=== PATIENT | female | born 1970 | race Hispanic/Latino ===

== ENCOUNTER 2018-03-25 07:49 | Emergency (ER) | payer OTHER, SELFPAY ==
[2018-03-25] MEDS ORDERED: NA CHLORIDE 0.9% 500 ML ONE (08:14)
[2018-03-25 08:28] LABS: Absolute Lymphocytes (CBC) 2.8 K/uL (0.7-4.9); Absolute Monocytes 0.6 K/uL (0.1-1.3); Absolute Neutrophil 3.7 K/uL (1.8-8.0); Basophils % 0.5 % (0-1.3); Eosinophils % 1.5 % (0-4.4); Hematocrit 45.5 % (36.0-45.0); Lymphocytes % 38.6 % (15.3-44.8); MCV 91.4 fL (80-100); MPV 8.7 fL (7.6-11.3); Monocytes % 8.8 % (3.3-12.3); RBC Red Blood Cell Count 4.98 M/uL (3.86-4.86)
--- NOTE | 2018-03-25 08:48 | RAD REPORT ---
EXAM DESCRIPTION: CT - Head Brain Wo Cont - 03/25/2018 8:41 am CLINICAL HISTORY: Dizziness;Headache COMPARISON: No comparisons TECHNIQUE: All CT scans are performed using dose optimization technique as appropriate and may inclu de automated exposure control or mA/KV adjustment according to patient size. FINDINGS: No intracranial hemorrhage, hydrocephalus or extra-axial fluid collection.No areas of brai n edema or evidence of midline shift. The paranasal sinuses and mastoids are clear. The calvarium is intact. IMPRESSION: No acute intracranial abnormality.
[2018-03-25 09:07] LABS: BUN Blood Urea Nitrogen 10 mg/dL (7-18); Bicarbonate 30 mmol/L (21-32); CKMB Creatine Kinase MB < 1.0 ng/mL (0.3-3.6); Creatine Phosphokinase 106 U/L (26-192); Glucose Level 97 mg/dL (74-106); Potassium 3.9 mmol/L (3.5-5.1); Sodium Level 137 mmol/L (136-145)
--- NOTE | 2018-03-25 09:20 | RAD REPORT ---
EXAM DESCRIPTION: RAD - Chest Single View - 03/25/2018 8:33 am CLINICAL HISTORY: CHEST PAIN Chest pain. COMPARISON: No comparisons FINDINGS: Portable technique limits examination quality. The lungs are grossly clear. The heart is normal in size. No displaced fractures. IMPRESSION: No acute intrathoracic process suspected.
--- NOTE | 2018-03-25 09:22 | EKG ---
Test Date: 2018-03-25 Test Time: 07:59:51 Care Attendant: ROLANDO MEASUREMENT RESULTS: Intervals: Rate: 60 IA: 130 QRSD: 86 QT: 424 QTc: 424 [place]cl[place]: P: 43 IA: 130 QRS: 102 T: 72 INTERPRETIVE STATEMENTS: Normal sinus rhythm Possible Right ventricular hypertrophy Abnormal ECG No previous ECG available for comparison Electronically Signed On 03-25-18 09:22:37 CDT by Rudi Davies
--- NOTE | 2018-03-25 09:37 | ER ---
Nurse's Notes [facility] Name: Nilda Eldridge Age: 47 yrs Sex: Female : 1970 Arrival Date: 03/25/2018 Time: 07:53 Bed 13 Private MD: None, None Diagnosis: Hypertension;Headache;Palpitations Presentation: 03/25 07:59 Presenting complaint: Patient states: This morning around 0340 I woke up with really sg bad chest pressure, the pain and pressure kept getting worse so I wanted to come in to get seen. pt stated her BP at home was 176/ i cant remember the bottom number but it was high. At 0500 this morning I started having a really dry mouth, and just cant get enough water. I take my BP meds but the pressure still hasnt come down. Transition of care: patient was not received from another setting of care. Onset of symptoms was March 25, 2018. Risk Assessment: Do you want to hurt yourself or someone else? Patient reports no desire to harm self or others. Initial Sepsis Screen: Does the patient meet any 2 criteria? No. Patient's initial sepsis screen is negative. Does the patient have a suspected source of infection? No. Patient's initial sepsis screen is negative. Care prior to arrival: None. 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 - Social history:: Smoking status: Patient/guardian denies using tobacco. - Ebola Screening: : Patient negative for fever greater than or equal to 101.5 degrees Fahrenheit, and additional compatible Ebola Virus Disease symptoms Patient denies exposure to infectious person Patient denies travel to an Ebola-affected area in the 21 days before illness onset No symptoms or risks identified at this time. - Family history:: not pertinent. - Hospitalizations: : No recent hospitalization is reported. Screenin:10 Abuse screen: Denies threats or abuse. Denies injuries from another. Nutritional sg screening: No deficits noted. Tuberculosis screening: No symptoms or risk factors identified. Never had TB. Fall Risk None identified. Assessment: 08:10 General: Appears in no apparent distress. comfortable, well groomed, well developed, sg well nourished, Behavior is calm, cooperative, appropriate for age. Pain: Complains of pain in mid-sternal area Quality of pain is described as pressure, Is intermittent, lasting more than 1 hour. Neuro: Level of Consciousness is awake, alert, obeys commands, Oriented to person, place, time, situation, Muleser are equal bilaterally Moves all extremities. Full function Gait is steady, Speech is normal, Facial symmetry appears normal. Cardiovascular: Heart tones S1 S2 present Capillary refill is brisk in bilateral fingers Patient's skin is warm and dry. Chest pain is described as mild, quality is pressure, is located in substernal area episodes are intermittent. Respiratory: Airway is patent Respiratory effort is even, unlabored, Respiratory pattern is regular, symmetrical, Breath sounds are clear Denies cough, shortness of breath labored breathing, pain with respiration, pain with cough, pain with movement, air hunger. GI: No signs and/or symptoms were reported involving the gastrointestinal system. : No signs and/or symptoms were reported regarding the genitourinary system. EENT: No signs and/or symptoms were reported regarding the EENT system. Derm: Skin is pink, warm \T\ dry. Musculoskeletal: No signs and/or symptoms reported regarding the musculoskeletal system. 08:20 Reassessment: xray at bedside. sg Vital Signs: 08:23 BP 166 / 100; Pulse 58; Resp 20; Temp 98.2; Pulse Ox 98% on R/A; Weight 75.75 kg; mh5 Height 5 ft. 1 in. (154.94 cm); Pain 5/10; 08:59 BP 137 / 86; Pulse 62; Resp 14; Pulse Ox 98% ; mh5 08:23 Body Mass Index 31.55 (75.75 kg, 154.94 cm) 5 ED Course: 07:53 Patient arrived in ED. sb2 07:54 None, None is Private Physician. sb2 07:59 Myron Helm RN is Primary Nurse. sg 08:02 Triage completed. sg 08:02 Arm band placed on. sg 08:03 Fei Hussein MD is Attending Physician. rn 08:10 No provider procedures requiring assistance completed. sg 08:11 Primary Nurse role handed off by Myron Helm RN 08:17 Myron Helm, RN is Primary Nurse. sg 08:22 Initial lab(s) drawn, by pa, sent to lab. Inserted saline lock: 22 gauge in left mh5 antecubital area, using aseptic technique. Blood collected. 08:23 Patient has correct armband on for positive identification. Placed in gown. Bed in low mh5 position. Call light in reach. Side rails up X 1. Warm blanket given. residential monitor on. Pulse ox on. NIBP on. 08:27 CPK Sent. 5 08:27 Ckmb Sent. 5 08:27 Basic Metabolic Panel Sent. 5 08:27 CBC with Diff Sent. 5 08:27 Troponin (emerg Dept Use Only) Sent. 5 08:33 XRAY Chest (1 view) In Process Unspecified. EDMS 08:41 CT Head Brain wo Cont In Process Unspecified. EDMS 09:23 Myron Helm, RN is Primary Nurse. sg 10:00 IV discontinued, intact, bleeding controlled, No redness/swelling at site. Pressure sg dressing applied. Administered Medications: 08:17 Drug: NS 0.9% 500 ml Route: IV; Rate: bolus; Site: left antecubital; sg 09:00 Follow up: Response: No adverse reaction; IV Status: Completed infusion; IV Intake: sg 500ml Intake: 09:00 IV: 500ml; Total: 500ml. sg Outcome: 09:36 Discharge ordered by . rn 10:00 Discharged to home ambulatory. sg 10:00 Condition: good 10:00 Discharge instructions given to patient, Instructed on discharge instructions, follow up and referral plans. safety practices, Demonstrated understanding of instructions, follow-up care. 10:08 Patient left the ED. sg Signatures: Dispatcher [employer] EDMS Myron Helm, Fei Colunga RN, MD MD rn Gallardo, Filomena Ceja [facility] Nery Fuentes2
--- NOTE | 2018-03-25 09:37 | EDPHYS ---
Physician Documentation [facility] Name: Nilda Eldridge Age: 47 yrs Sex: Female : 1970 Arrival Date: 03/25/2018 Time: 07:53 Bed 13 Private MD: None, None ED Physician Fei Hussein HPI: 03/25 08:11 This 47 yrs old Female presents to ER via Ambulatory with complaints of High rn Blood Pressure. 08:11 The patient has elevated blood pressure and discovered this at home. Onset: The rn symptoms/episode began/occurred last night. Modifying factors:. Associated signs and symptoms: Pertinent positives: chest pain, dizziness, headache, weakness. Severity of symptoms: At its worst the blood pressure was moderate, in the emergency department the blood pressure is improved. The patient has experienced similar episodes in the past. Reports noticed high blood pressure last night, assoc with headache, dizziness, generalized weakness, dry mouth, takes her medication. 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 - Social history:: Smoking status: Patient/guardian denies using tobacco. - Ebola Screening: : Patient negative for fever greater than or equal to 101.5 degrees Fahrenheit, and additional compatible Ebola Virus Disease symptoms Patient denies exposure to infectious person Patient denies travel to an Ebola-affected area in the 21 days before illness onset No symptoms or risks identified at this time. - Family history:: not pertinent. - Hospitalizations: : No recent hospitalization is reported. ROS: 08:11 Constitutional: Negative for fever, chills, and weight loss, Eyes: Negative for injury, rn pain, redness, and discharge, Neck: Negative for injury, pain, and swelling, Cardiovascular: Negative for edema Respiratory: Negative for shortness of breath, cough, wheezing, and pleuritic chest pain, Abdomen/GI: Negative for abdominal pain, nausea, vomiting, diarrhea, and constipation, MS/Extremity: Negative for injury and deformity, Skin: Negative for injury, rash, and discoloration, Neuro: + headache and tingling Exam: 08:11 Constitutional: This is a well developed, well nourished patient who is awake, alert, rn and in no acute distress. Head/Face: Normocephalic, atraumatic. Eyes: Pupils equal round and reactive to light, extra-ocular motions intact. Lids and lashes normal. Conjunctiva and sclera are non-icteric and not injected. Cornea within normal limits. Periorbital areas with no swelling, redness, or edema. Neck: Trachea midline, no thyromegaly or masses palpated, and no cervical lymphadenopathy. Supple, full range of motion without nuchal rigidity, or vertebral point tenderness. No Meningismus. Cardiovascular: Regular rate and rhythm with a normal S1 and S2. No gallops, murmurs, or rubs. Normal PMI, no JVD. No pulse deficits. Respiratory: Lungs have equal breath sounds bilaterally, clear to auscultation and percussion. No rales, rhonchi or wheezes noted. No increased work of breathing, no retractions or nasal flaring. Abdomen/GI: Soft, non-tender, with normal bowel sounds. No distension or tympany. No guarding or rebound. No evidence of tenderness throughout. MS/ Extremity: Pulses equal, no cyanosis. Neurovascular intact. Full, normal range of motion. Equal circumference. Neuro: Awake and alert, GCS 15, oriented to person, place, time, and situation. Cranial nerves II-XII grossly intact. Motor strength 5/5 in all extremities. Sensory grossly intact. Vital Signs: 08:23 BP 166 / 100; Pulse 58; Resp 20; Temp 98.2; Pulse Ox 98% on R/A; Weight 75.75 kg; mh5 Height 5 ft. 1 in. (154.94 cm); Pain 5/10; 08:59 BP 137 / 86; Pulse 62; Resp 14; Pulse Ox 98% ; mh5 08:23 Body Mass Index 31.55 (75.75 kg, 154.94 cm) [facility] MDM: 08:03 Patient medically screened. rn 09:34 Differential diagnosis: hypertensive crisis, Malignant HTN, medication side effect. rn Data reviewed: vital signs, nurses notes, lab test result(s), EKG, radiologic studies, CT scan, plain films, and as a result, I will discharge patient. Counseling: I had a detailed discussion with the patient and/or guardian regarding: the historical points, exam findings, and any diagnostic results supporting the discharge/admit diagnosis, lab results, radiology results, the need for outpatient follow up, to return to the emergency department if symptoms worsen or persist or if there are any questions or concerns that arise at home. Response to treatment: the patient's symptoms have markedly improved after treatment, and as a result, I will discharge patient. Special discussion: Based on the patient's history, exam, and Dx evaluation, there is no indication for emergent intervention or inpatient Tx. It is understood by the patient/guardian that if the Sx's persist or worsen they need to return immediately for re-evaluation. I discussed with the patient/guardian in detail that at this point there is no indication for admission to the hospital. It is understood, however, that if the symptoms persist or worsen the patient needs to return immediately for re-evaluation. ED course: Pt reports now that just began taking 2 new diet pills a few days ago, prescription, and might be the cause, neg w/u here, will dc home with discontinuation of diet pills as may be causing worsening of HTN and palpitations. . 03/25 08:10 Order name: CPK; Complete Time: :03/25 08:10 Order name: Ckmb; Complete Time: 03/25 08:10 Order name: Basic Metabolic Panel; Complete Time: 03/25 08:10 Order name: CBC with Diff; Complete Time: 03/25 08:10 Order name: Troponin (emerg Dept Use Only); Complete Time: 03/25 08:10 Order name: CT Head Brain wo Cont; Complete Time: 03/25 08:10 Order name: EKG; Complete Time: 08:03/25 08:10 Order name: Cardiac monitoring; Complete Time: :03/25 08:10 Order name: IV Saline Lock; Complete Time: 03/25 08:10 Order name: XRAY Chest (1 view); Complete Time: :03/25 08:10 Order name: Labs collected and sent; Complete Time: :03/25 08:10 Order name: O2 Per Protocol; Complete Time: :/29 08:10 Order name: O2 Sat Monitoring; Complete Time: 08:19 rn Administered Medications: 08:17 Drug: NS 0.9% 500 ml Route: IV; Rate: bolus; Site: left antecubital; sg 09:00 Follow up: Response: No adverse reaction; IV Status: Completed infusion; IV Intake: sg 500ml Disposition: 03/25/18 09:36 Discharged to Home. Impression: Hypertension, Headache, Palpitations. - Condition is Stable. - Discharge Instructions: Nonspecific Chest Pain, General Headache Without Cause, Hypertension, Palpitations. - Work release form, Medication Reconciliation Form, Thank You Letter, Antibiotic Education, Prescription Opioid Use form. - Follow up: Private Physician; When: As needed; Reason: Recheck today's complaints, Re-evaluation by your physician. - Problem is new. - Symptoms have improved. Signatures: Dispatcher [employer] EDMyron Chicas RN RN sg Nieto, Roman, MD MD learning support assistant: (The following items were deleted from the chart) 10:08 09:36 03/25/2018 09:36 Discharged to Home. Impression: Hypertension; Headache; sg Palpitations. Condition is Stable. Forms are Medication Reconciliation Form, Thank You Letter, Antibiotic Education, Prescription Opioid Use. Follow up: Private Physician; When: As needed; Reason: Recheck today's complaints, Re-evaluation by your physician. Problem is new. Symptoms have improved. rn
== END 2018-03-25 10:08 | disposition home or self-care (01) ==
LOC: ER 07:49
DX: I10 Essential (primary) hypertension (principal); R00.2 Palpitations; E78.00 Pure hypercholesterolemia, unspecified
CPT/HCPCS: 36415; 70450; 71045; 80048; 82550; 82553; 84484; 85025; 93005; 96360; 99284